=== PATIENT | male | born 1960 | race Caucasian/White ===

== ENCOUNTER 2019-03-14 18:36 | Inpatient (IN) | payer OTHER ==
[~2019-03-14] VITALS: Ht 165.1 cm; Wt 84.7 kg
[2019-03-14] MEDS ORDERED: BALSALAZIDE DI750 M1 PO (19:31)
[2019-03-14] MEDS ORDERED: CARVEDILOL12.5 MG PO (19:32)
[2019-03-14] MEDS ORDERED: DOCUSATE SODIU1 EACH PO (19:33)
[2019-03-14] MEDS ORDERED: ROXICODONE5 M2 PO (19:35)
[2019-03-14] MEDS ORDERED: MIRALAX119 GM PO (19:35)
[2019-03-15 11:22] VITALS: BP 130/79
[2019-03-15 18:19] LABS: HEMATOCRIT 35.8 % (42.0-52.0); HEMOGLOBIN 11.9 gm/dL (14.0-18.0); MCHC 33.2 g/dL (28.0-37.0); MCV 93.3 fL (80.0-100.0); MPV 7.3 fl. (7.2-11.1); RBC 3.84 mil/uL (4.50-6.00); WBC 11.4 thou/uL (4.0-11.0)
[2019-03-15 18:34] LABS: ALBUMIN 2.8 g/dL (3.4-5.0); CALCIUM 8.2 mg/dL (8.5-10.1); CREATININE 1.2 mg/dL (0.6-1.3); POTASSIUM 4.7 mmol/L (3.5-5.1); TOTAL BILIRUBIN 0.9 mg/dL (<0.1-1.0); TOTAL PROTEIN 7.4 g/dL (6.4-8.2)
[2019-03-15 19:40] VITALS: BP 144/83
[2019-03-15 20:07] LABS: URINE BILIRUBIN NEGATIVE (Negative); URINE BLOOD 3+ (Negative); URINE CLARITY CLEAR; URINE COLOR YELLOW; URINE GLUCOSE-RANDOM NEGATIVE (Negative); URINE KETONES NEGATIVE (Negative); URINE LEUKOCYTES-REFLEX NEGATIVE (Negative); URINE NITRITE-REFLEX NEGATIVE (Negative); URINE PROTEIN 2+ (Negative); URINE SPECIFIC GRAVITY >= 1.030 (1.005-1.030); URINE UROBILINOGEN 0.2 E.U./dl (0.2-1.0)
[2019-03-15 20:22] LABS: BACTERIA-REFLEX None Seen /HPF (None Seen); CRYSTALS None Seen /LPF (None Seen); FINE GRANULAR CASTS 0-3 Few /LPF (None Seen); HYALINE CASTS 0-3 Few /LPF (None Seen); MUCUS 0-3 Light strn/LPF (None Seen); SQUAMOUS 0-3 Few /LPF (0-3); URINE RBC 3-10 Few /HPF (0-2); URINE WBC-REFLEX None Seen /HPF (0-5)
[2019-03-16 08:00] VITALS: BP 146/85
[2019-03-16 19:30] VITALS: BP 140/84
[2019-03-17 07:51] VITALS: BP 129/78
[2019-03-17 19:00] VITALS: BP 100/75
[2019-03-18 07:33] VITALS: BP 130/80
[2019-03-18 20:00] VITALS: BP 139/79
[2019-03-19 08:06] VITALS: BP 134/68
[2019-03-19 19:15] VITALS: BP 116/61
[2019-03-20 08:00] VITALS: BP 128/80
[2019-03-20 20:00] VITALS: BP 146/86
[2019-03-21 08:17] VITALS: BP 138/84
[2019-03-21 20:18] VITALS: BP 145/87
[2019-03-22 08:21] VITALS: BP 141/72
[2019-03-22 20:00] VITALS: BP 147/83
[2019-03-23 08:00] VITALS: BP 142/87
[2019-03-23 19:30] VITALS: BP 145/82
[2019-03-24 08:04] VITALS: BP 134/79
[2019-03-24 20:05] VITALS: BP 151/85
[2019-03-25 08:00] VITALS: BP 146/85
[2019-03-25 20:23] VITALS: BP 153/83
[2019-03-26 08:35] VITALS: BP 135/82
[2019-03-26 14:54] VITALS: BP 135/82
== END 2019-03-26 16:34 | disposition home health service (06) | DRG 536 ==
LOC: M.REH 18:36
PROVIDERS: ADMIT Physical Medicine & Rehabilitation
DX: S72.001A Fracture of unspecified part of neck of right femur, initial encounter for closed fracture (principal); S22.42XA Multiple fractures of ribs, left side, initial encounter for closed fracture; K51.90 Ulcerative colitis, unspecified, without complications; J90 Pleural effusion, not elsewhere classified; S72.301A Unspecified fracture of shaft of right femur, initial encounter for closed fracture; I10 Essential (primary) hypertension; Z88.8 Allergy status to other drugs, medicaments and biological substances; Y93.I9 Activity, other involving external motion; V69.40XA Driver of heavy transport vehicle injured in collision with unspecified motor vehicles in traffic accident, initial encounter; Y92.488 Other paved roadways as the place of occurrence of the external cause; Y99.8 Other external cause status